=== PATIENT | male | born 1970 | race Caucasian/White ===

== ENCOUNTER 2022-12-08 21:49 | Emergency (ER) | payer BC ==
[2022-12-08] MEDS ORDERED: Ketorolac 30 MG/ML SDV IM ONE (22:08)
[2022-12-08 22:47] LABS: BASOPHILS PERCENT AUTO 0.2 % (0.3-3.8); EOSINOPHILS ABSOLUTE AUTO 0.1 x10-3/uL (0.0-0.6); EOSINOPHILS PERCENT AUTO 1.6 % (0.1-6.8); HEMATOCRIT 41.4 % (38.3-50.1); HEMOGLOBIN 14.4 g/dL (12.9-17.7); LYMPHOCYTES ABSOLUTE AUTO 1.3 x10-3/uL (0.5-4.5); LYMPHOCYTES PERCENT AUTO 18.7 % (15.8-45.3); MEAN CORPUSCULAR HEMOGLOBIN 31.4 pg (27.0-33.3); MEAN CORPUSCULAR HGB CONC 34.8 g/dL (28.7-35.3); MEAN CORPUSCULAR VOLUME 90.2 fL (80.8-98.7); MEAN PLATELET VOLUME 8.5 fL (6.7-11.0); MONOCYTES ABSOLUTE AUTO 0.8 x10-3/uL (0.0-1.2); MONOCYTES PERCENT AUTO 11.5 % (5.5-15.2); NEUTROPHILS ABSOLUTE AUTO 4.6 x10-3/uL (1.7-6.9); PLATELET COUNT,PLT 191 x10(3)uL (117-477); RED CELL DISTRIBUTION WIDTH 14.2 % (12.4-15.0); WHITE BLOOD CELL COUNT,WBC 6.8 x10-3/uL (3.2-10.1)
[2022-12-08 22:49] LABS: BLOOD UREA NITROGEN,BUN 20 mg/dL (7-18); BUN/CREATININE RATIO 16.7 (9-20); CALCIUM 8.6 mg/dL (8.6-10.2); CARBON DIOXIDE,CO2 29 mmol/L (21-32); CHLORIDE,CL 104 mmol/L (100-110); CREATININE 1.2 mg/dL (0.70-1.30); EST CRCL DRUG DOSING (CG) 68.08 mL/min; ESTIMATED GFR 72 mL/min (>60); GLUCOSE RANDOM 121 mg/dL (80-116); POTASSIUM,K 3.8 mmol/L (3.5-5.3); SODIUM,NA 141 mmol/L (135-145)
[2022-12-08 22:55] LABS: A/G RATIO 1.1; ALANINE AMINOTRANSFERASE,ALT 23 U/L (12-36); ALBUMIN 3.7 g/dL (3.5-5.2); ALKALINE PHOSPHATASE 119 IU/L (56-112); ASPARTATE AMNIOTRANSFERASE,AST 17 IU/L (5-25); BILIRUBIN TOTAL 0.5 mg/dL (0.1-1.3); PROTEIN TOTAL,TP 7.1 g/dL (6.0-8.0)
[2022-12-08 22:57] LABS: C-REACTIVE PROTEIN 0.62 mg/dL (<0.33); TROPONIN I 7.3 pg/mL (4.0-60.3)
[2022-12-08] MEDS ORDERED: Iopamidol 755 Mg/ML 100 ML Bottle IV ONE (23:08)
[2022-12-09] MEDS ORDERED: Enoxaparin 80 MG/0.8 ML Syringe SUBCUT ONE (00:54)
== END 2022-12-09 01:16 | disposition home or self-care (01) ==
LOC: FB.ED 21:49
DX: I26.99 Other pulmonary embolism without acute cor pulmonale (principal); Z79.899 Other long term (current) drug therapy; Z90.49 Acquired absence of other specified parts of digestive tract
CPT/HCPCS: 36415; 71046; 71275; 80053; 84484; 85025; 85379; 86140; 96372; 99285; J1650; J1885; Q9967